=== PATIENT | male | born 1995 | race African-American/Black ===

== ENCOUNTER 2018-11-12 16:12 | Emergency (ER) | payer OTHER ==
--- NOTE | 2018-11-12 16:56 | RAD REPORT ---
EXAM DESCRIPTION: RAD - Shoulder Right 2 View - 11/12/2018 4:45 pm CLINICAL HISTORY: Right shoulder pain status post injury FINDINGS: Anterior dislocation involves the right humerus. No fracture seen.
[2018-11-12] MEDS ORDERED: NA CHLORIDE 0.9% 1,000 ML ONE (17:14)
[2018-11-12] MEDS ORDERED: ETOMIDATE 20 MG/10 ML VIAL IV ONE (17:14)
[2018-11-12] MEDS ORDERED: MIDAZOLAM HCL 2 MG/2 ML INJ ONE ×2 (17:22→17:25)
--- NOTE | 2018-11-12 17:35 | EDPHYS ---
Physician Documentation [facility] Name: Angelo Church Age: 23 yrs Sex: Male : 1995 Arrival Date: 11/12/2018 Time: 16:14 Bed 26 Private MD: ED Physician Angelo Wong HPI: 11/12 16:25 This 23 yrs old Male presents to ER via Ambulatory with complaints of Shoulder Injury. jr8 16:25 right shoulder. Context: The problem was sustained at a [place] [facility], resulted from weight jr8 lifting , The patient experiences decreased range of motion. Onset: The symptoms/episode began/occurred acutely, today. Modifying factors: the symptoms are alleviated by nothing. The symptoms are aggravated by movement. Associated signs and symptoms: The patient has no apparent associated signs or symptoms. Severity of symptoms: At their worst the symptoms were moderate, in the emergency department the symptoms are unchanged. The patient has experienced similar episodes in the past, a few times. The patient has not recently seen a physician. Patient was doing bench press and felt right shoulder dislocate. Has had this a few times in the past . Historical: - Allergies: 16:17 No Known Allergies; kr2 - Home Meds: 16:17 None [Active]; kr2 - PMHx: 16:17 None; kr2 - Immunization history:: Adult Immunizations unknown. - Social history:: Smoking status: Patient/guardian denies using tobacco. - Ebola Screening: : No symptoms or risks identified at this time. ROS: 16:25 Eyes: Negative for injury, pain, redness, and discharge, ENT: Negative for injury, jr8 pain, and discharge, Neck: Negative for injury, pain, and swelling, Cardiovascular: Negative for chest pain, palpitations, and edema, Respiratory: Negative for shortness of breath, cough, wheezing, and pleuritic chest pain, Abdomen/GI: Negative for abdominal pain, nausea, vomiting, diarrhea, and constipation, Back: Negative for injury and pain, Skin: Negative for injury, rash, and discoloration, Neuro: Negative for headache, weakness, numbness, tingling, and seizure. 16:25 MS/extremity: Positive for injury or acute deformity, decreased range of motion, pain, of the right shoulder. Exam: 16:25 Eyes: Pupils equal round and reactive to light, extra-ocular motions intact. Lids and jr8 lashes normal. Conjunctiva and sclera are non-icteric and not injected. Cornea within normal limits. Periorbital areas with no swelling, redness, or edema. ENT: Nares patent. No nasal discharge, no septal abnormalities noted. Tympanic membranes are normal and external auditory canals are clear. Oropharynx with no redness, swelling, or masses, exudates, or evidence of obstruction, uvula midline. Mucous membranes moist. Neck: Trachea midline, no thyromegaly or masses palpated, and no cervical lymphadenopathy. Supple, full range of motion without nuchal rigidity, or vertebral point tenderness. No Meningismus. Chest/axilla: Normal chest wall appearance and motion. Nontender with no deformity. No lesions are appreciated. Cardiovascular: Regular rate and rhythm with a normal S1 and S2. No gallops, murmurs, or rubs. Normal PMI, no JVD. No pulse deficits. Respiratory: Lungs have equal breath sounds bilaterally, clear to auscultation and percussion. No rales, rhonchi or wheezes noted. No increased work of breathing, no retractions or nasal flaring. Abdomen/GI: Soft, non-tender, with normal bowel sounds. No distension or tympany. No guarding or rebound. No evidence of tenderness throughout. Back: No spinal tenderness. No costovertebral tenderness. Full range of motion. Skin: Warm, dry with normal turgor. Normal color with no rashes, no lesions, and no evidence of cellulitis. Neuro: Awake and alert, GCS 15, oriented to person, place, time, and situation. Cranial nerves II-XII grossly intact. Motor strength 5/5 in all extremities. Sensory grossly intact. Cerebellar exam normal. Normal gait. 16:25 Musculoskeletal/extremity: Extremities: grossly normal except: noted in the right shoulder: decreased ROM, pain, step off noted to right subacromial region , Circulation is intact in all extremities. Sensation intact. Vital Signs: 16:16 BP 133 / 77; Pulse 62; Resp 17; Temp 98; Pulse Ox 98% on R/A; Weight 74.84 kg; Height 5 kr2 ft. 7 in. (170.18 cm); 17:10 BP 139 / 70; Pulse 70; Resp 18; Pulse Ox 100% on R/A; mg2 18:05 BP 128 / 82; Pulse 70; Resp 18; Pulse Ox 100% on R/A; Pain 0/10; mg2 19:15 BP 126 / 78; Pulse 70; Resp 18; Pulse Ox 100% on R/A; Pain 0/10; mg2 16:16 Body Mass Index 25.84 (74.84 kg, 170.18 cm) kr2 Procedures: 17:32 Splinting: Splint applied to right shoulder using sling, applied by myself. tech. post jr8 reduction film - reveals normal alignment, Examined by me, post splint application: neurovascular intact, 2+ distal pulses palpable, brisk capillary refill noted, Patient tolerated well. Reduction: of the right shoulder, using traction, manipulation, Immobilized with sling, Patient tolerated well. Post reduction film - reveals normal alignment. Moderate sedation: Pre-procedure assessment: the patient has been NPO 6 hour(s) prior to arrival, ASA physical classification: I - healthy, no underlying organic disease, Airway assessment: able to hyperextend neck, able to maintain airway, can open mouth without difficulty, Mallampati classification of tongue size: II - faucial pillars and soft palate can be visualized, but uvula is masked by the base of the tongue, Monitoring during procedure: nuclear monitoring technician, continuous pulse oximetry, nurse at bedside at all times, Medications employed: Etomidate, 20 mg(s), Versed, 4 mg(s), Post-procedure assessment: the patient is moderately sedated, Greenberg sedation score: 5 - sluggish response to a light glabellar tap, Respiratory status: even and unlabored, a reversal agent was not used. MDM: 16:16 Patient medically screened. jr8 17:33 Data reviewed: vital signs, nurses notes, radiologic studies, plain films. Data jr8 interpreted: Pulse oximetry: on room air is 98 %. Interpretation: normal. Counseling: I had a detailed discussion with the patient and/or guardian regarding: the historical points, exam findings, and any diagnostic results supporting the discharge/admit diagnosis, radiology results, the need for outpatient follow up, a orthopedic surgeon, to return to the emergency department if symptoms worsen or persist or if there are any questions or concerns that arise at home. Response to treatment: the patient's symptoms have resolved after treatment. 11/12 16:16 Order name: XRAY Shoulder RIGHT 2 view; Complete Time: 17:32 jr8 11/12 17:32 Order name: XRAY Shoulder RIGHT 2 view; Complete Time: 18:08 8 11/12 17:32 Order name: Conscious Sedation; Complete Time: 17:32 8 11/12 17:32 Order name: Cardiac monitoring; Complete Time: 17:32 8 11/12 17:32 Order name: Oxygen; Complete Time: 17:32 Administered Medications: 17:08 Drug: Etomidate 20 mg Route: IVP; Site: left hand; mg2 19:13 Follow up: Response: No adverse reaction; Marked relief of symptoms mg2 17:11 Drug: Versed 2 mg Route: IVP; Site: left hand; mg2 19:14 Follow up: Response: No adverse reaction; Marked relief of symptoms mg2 17:15 Drug: Versed 2 mg Route: IVP; Site: left hand; mg2 19:14 Follow up: Response: No adverse reaction; Marked relief of symptoms mg2 Disposition: 11/12/18 17:34 Discharged to Home. Impression: Anterior dislocation of right humerus. - Condition is Stable. - Discharge Instructions: Shoulder Dislocation. - Prescriptions for Ibuprofen 800 mg Oral Tablet - take 1 tablet by ORAL route every 8 hours As needed take with food; 30 tablet. - Medication Reconciliation Form, Thank You Letter, Antibiotic Education, Prescription Opioid Use form. - Follow up: Private Physician; When: 10 - 14 days; Reason: Recheck today's complaints, Continuance of care, Re-evaluation by your physician. - Problem is new. - Symptoms have improved. Addendum: 11/16/2018 11:05 Co-signature as Attending Physician, Angelo Wong MD I agree with the assessment and c ku plan of care. Signatures: Dispatcher [employer] EDAngelo Paniagua MD MD cha Roszak, Josh, PA PA jr8 Melissa Glover RN RN kr2 Juan Camp RN RN mg2 Corrections: (The following items were deleted from the chart) 11/12 19:21 17:34 11/12/2018 17:34 Discharged to Home. Impression: Anterior dislocation of right mg2 humerus. Condition is Stable. Forms are Medication Reconciliation Form, Thank You Letter, Antibiotic Education, Prescription Opioid Use. Follow up: Private Physician; When: 10 - 14 days; Reason: Recheck today's complaints, Continuance of care, Re-evaluation by your physician. Problem is new. Symptoms have improved. jr8
--- NOTE | 2018-11-12 17:35 | ER ---
Nurse's Notes [facility] Name: Angelo Church Age: 23 yrs Sex: Male : 1995 Arrival Date: 11/12/2018 Time: 16:14 Bed 26 Private MD: Diagnosis: Anterior dislocation of right humerus Presentation: 11/12 16:14 Presenting complaint: Patient states: I was lifting weights and dislocated my shoulder kr2 about 3 hours ago. Transition of care: Inmate from [facility] unit, intermediate officers at bedside. Onset of symptoms was November 12, 2018. Risk Assessment: Do you want to hurt yourself or someone else? Patient reports no desire to harm self or others. Initial Sepsis Screen: Does the patient meet any 2 criteria? No. Patient's initial sepsis screen is negative. Does the patient have a suspected source of infection? No. Patient's initial sepsis screen is negative. Care prior to arrival: Sling to right arm. 16:14 Method Of Arrival: Ambulatory kr2 16:14 Acuity: GWEN 3 kr2 Triage Assessment: 16:18 General: Appears in no apparent distress. comfortable, well groomed, well nourished, kr2 Behavior is calm, cooperative. Pain: Complains of pain in anterior aspect of right shoulder and posterior aspect of right shoulder Pain does not radiate. Pain currently is 0 out of 10 on a pain scale. at worst was 8 out of 10 on a pain scale. Quality of pain is described as sharp, shooting, tender, Pain began 3 hours ago. Is intermittent, Alleviated by rest, Aggravated by repositioning. Neuro: Level of Consciousness is awake, alert, obeys commands, Oriented to person, place, time, situation, Appropriate for age Sponge Press Operator are equal bilaterally Intact. Cardiovascular: Capillary refill < 3 seconds in bilateral fingers Patient's skin is warm and dry. Respiratory: Airway is patent Respiratory effort is even, unlabored, Respiratory pattern is regular, symmetrical. Derm: Skin is intact, is healthy with good turgor, Skin is pink, warm \T\ dry. Musculoskeletal: Range of motion: limited in right shoulder. Injury Description: Deformity sustained to right shoulder is dislocated, was sustained 2-4 hours ago. Historical: - Allergies: 16:17 No Known Allergies; kr2 - Home Meds: 16:17 None [Active]; kr2 - PMHx: 16:17 None; kr2 - Immunization history:: Adult Immunizations unknown. - Social history:: Smoking status: Patient/guardian denies using tobacco. - Ebola Screening: : No symptoms or risks identified at this time. Screenin:20 Abuse screen: Denies threats or abuse. Denies injuries from another. Nutritional kr2 screening: No deficits noted. Tuberculosis screening: No symptoms or risk factors identified. Fall Risk None identified. Assessment: 17:00 General: Appears in no apparent distress. comfortable, Behavior is calm, cooperative. mg2 Pain: Complains of pain in right shoulder Pain does not radiate. Neuro: Level of Consciousness is awake, alert, obeys commands, Oriented to person, place, time, situation. Cardiovascular: Capillary refill < 3 seconds Patient's skin is warm and dry. Respiratory: Airway is patent Respiratory effort is even, unlabored, Respiratory pattern is regular, symmetrical. GI: No signs and/or symptoms were reported involving the gastrointestinal system. : No signs and/or symptoms were reported regarding the genitourinary system. EENT: No signs and/or symptoms were reported regarding the EENT system. Derm: Skin is intact, is healthy with good turgor, Skin is pink, warm \T\ dry. normal. Musculoskeletal: Circulation, motion, and sensation intact. Capillary refill < 3 seconds, Range of motion: limited in right shoulder. Injury Description: dislocated shoulder. 17:05 Reassessment: informed conscious sedation consent signed by the patient. mg2 19:16 Reassessment: Patient appears in no apparent distress at this time. Patient and/or mg2 family updated on plan of care and expected duration. Pain level reassessed. Patient is alert, oriented x 3, equal unlabored respirations, skin warm/dry/pink. patient met the discharge criteria. able to drink without vomiting, stable gait, and ability to urinate. Vital Signs: 16:16 BP 133 / 77; Pulse 62; Resp 17; Temp 98; Pulse Ox 98% on R/A; Weight 74.84 kg; Height 5 kr2 ft. 7 in. (170.18 cm); 17:10 BP 139 / 70; Pulse 70; Resp 18; Pulse Ox 100% on R/A; mg2 18:05 BP 128 / 82; Pulse 70; Resp 18; Pulse Ox 100% on R/A; Pain 0/10; mg2 19:15 BP 126 / 78; Pulse 70; Resp 18; Pulse Ox 100% on R/A; Pain 0/10; mg2 16:16 Body Mass Index 25.84 (74.84 kg, 170.18 cm) kr2 ED Course: 16:14 Patient arrived in ED. kr2 16:16 You Peguero PA is PHCP. jr8 16:16 Angelo Wong MD is Attending Physician. jr8 16:16 Triage completed. kr2 16:20 Arm band placed on left wrist. kr2 16:20 Patient has correct armband on for positive identification. Bed in low position. Call kr2 light in reach. Side rails up X 1. Adult w/ patient. Pulse ox on. NIBP on. Head of bed elevated. 16:22 Juan Camp, RN is Primary Nurse. mg2 16:45 XRAY Shoulder RIGHT 2 view In Process Unspecified. EDMS 17:10 Inserted saline lock: 20 gauge in left hand, using aseptic technique. Blood collected. mg2 17:15 Assist provider with reduction of right shoulder using manipulation, Set up for mg2 procedure. Performed by You QUIÑONES Immobilized with sling, Patient tolerated well. 17:40 Juan Camp, RN is Primary Nurse. mg2 17:47 XRAY Shoulder RIGHT 2 view In Process Unspecified. EDMS 19:18 IV discontinued, intact, bleeding controlled, No redness/swelling at site. Pressure mg2 dressing applied. Administered Medications: 17:08 Drug: Etomidate 20 mg Route: IVP; Site: left hand; mg2 19:13 Follow up: Response: No adverse reaction; Marked relief of symptoms mg2 17:11 Drug: Versed 2 mg Route: IVP; Site: left hand; mg2 19:14 Follow up: Response: No adverse reaction; Marked relief of symptoms mg2 17:15 Drug: Versed 2 mg Route: IVP; Site: left hand; mg2 19:14 Follow up: Response: No adverse reaction; Marked relief of symptoms mg2 Outcome: 17:34 Discharge ordered by . jr8 19:18 Discharged to Law Enforcement mg2 19:18 Condition: stable 19:18 Discharge instructions given to patient, law enforcer Instructed on discharge instructions, follow up and referral plans. medication usage, Demonstrated understanding of instructions, follow-up care, medications, Prescriptions given X 1. 19:21 Patient left the ED. mg2 Signatures: Dispatcher [employer] EDMS You Peguero PA PA jr8 Melissa Glover RN RN kr2 Juan Camp RN RN mg2 Corrections: (The following items were deleted from the chart) 19:18 17:41 Inserted saline lock: 20 gauge in left hand, using aseptic technique. Blood mg2 collected. mg2
--- NOTE | 2018-11-12 18:06 | RAD REPORT ---
EXAM DESCRIPTION: RAD - Shoulder Right 2 View - 11/12/2018 5:47 pm CLINICAL HISTORY: Right Shoulder dislocation FINDINGS: Previously described dislocation appears reduced. Hill-Sachs deformity seen Acromioclavicular joint appears mildly widened which may indicate sprain of the ligament
== END 2018-11-12 19:21 | disposition home or self-care (01) ==
LOC: ER 16:12
PROC: 0RSJXZZ Reposition Right Shoulder Joint, External Approach (ICD-10-PCS; principal; 2018-11-12)
PROC: 3E033NZ Introduction of Analgesics, Hypnotics, Sedatives into Peripheral Vein, Percutaneous Approach (ICD-10-PCS; 2018-11-12)
DX: S43.014A Anterior dislocation of right humerus, initial encounter (principal); X50.0XXA Overexertion from strenuous movement or load, initial encounter; Y93.B3 Activity, free weights; Y92.149 Unspecified place in prison as the place of occurrence of the external cause
CPT/HCPCS: 96374; 96375; 99284; J2250; J7030